=== PATIENT | female | born 1965 | race Hispanic/Latino ===

== ENCOUNTER 2019-07-30 10:12 | Emergency (ER) | payer OTHER ==
[~2019-07-30] VITALS: Ht 162.6 cm; Wt 84.4 kg
--- NOTE | 2019-07-30 11:32 | Diagnostic Imaging Report ---
CT Abdomen and Pelvis without contrast INDICATION: Right-sided pain for 6 months, hematuria, ^[id number] ^[id number] TECHNIQUE: Thin collimation axial images obtained from the diaphragm to the level of the pubic symphysis without nonionic intravenous contrast. Dose reduction techniques used: Automated exposure control, adjustment of the mAs and/or kVp according to patient size, standardized low-dose protocol, and/or iterative reconstruction technique. RADIATION DOSE: Total DLP: 787.4 mGy*cm Estimated effective dose: (DLP x 0.015 x size factor) mSv CTDIvol has been reviewed. It is below the limits set by the Radiation Protocol Committee (RPC). COMPARISON: None. ABDOMEN FINDINGS: Lung Bases: Clear. The visualized portion of the mediastinum is normal. Liver: Normal in attenuation without mass. Gallbladder: Absent. No ductal dilatation. Pancreas: Normal attenuation without mass. Spleen: Normal size without mass. Adrenal Glands: No evidence for mass. Kidneys: Right: Punctate calculus in the lower pole. No cortical mass or hydronephrosis Left: Punctate calculi in the interpolar region. No cortical mass or hydronephrosis Lymph Nodes: No lymphadenopathy. Aorta: Normal in diameter. PELVIS FINDINGS: Bowel: Stomach: Normal. Small Bowel: Normal in caliber with normal wall thickness. Large Bowel: Normal in caliber with normal wall thickness. Appendix: Normal. Bladder: Normal. Ureters: No ureteral dilatation or calculus. Uterus: Present and normal in morphology. Bones: No focal osseous lesions. IMPRESSION: 1. Bilateral intrarenal calculi. No obstructive uropathy. 2. Status post cholecystectomy. No biliary tree. Signed by: Dr. Laverne Garcia MD on 07/30/2019 11:29 AM
[2019-07-30 11:44] VITALS: BP 161/99
== END 2019-07-30 11:51 | disposition home or self-care (01) ==
LOC: FSED 10:12
DX: R10.11 Right upper quadrant pain (principal); R31.9 Hematuria, unspecified; N20.0 Calculus of kidney
CPT/HCPCS: 74176; 80048; 80076; 81003; 85025; 99284